=== PATIENT | male | born 1970 | race Caucasian/White ===

== ENCOUNTER → 2016-10-01 | Outpatient (CLI) | payer BC ==
[~2016-10-01] MED LIST: /PANT40TA OR; /WARF5TA OR; ACET65TA OR; ALBU17IN2 IN; ENOX40SY SC; PROT1TAB2 PO; VICO5TAB OR
== END | disposition home or self-care (01) ==
LOC: M SMT 14:58
PROVIDERS: ATTEND Nurse Practitioner Women's Health
DX: Z12.5 Encounter for screening for malignant neoplasm of prostate (principal); R31.29 Other microscopic hematuria

== ENCOUNTER → 2016-10-10 | Outpatient (CLI) | payer BC ==
[~2016-10-10] MED LIST changes: +ISOVUE-370 76% 100ML VIAL (Q9967) As Ordered ONE
--- NOTE | 2016-10-10 14:29 | REP ---
CT abdomen pelvis multiphasic scanning: Scan is performed from the diaphragms to the pubic symphysis on all phases. Scanning is initially performed without IV contrast. This is followed by IV contrast enhanced biphasic scanning, initially during the portal venous phase of enhancement and later during the equilibrium phase of enhancement. There is no bowel contrast of the phase of the study. Comparison is 10/01/2011. The visualized lung faustin are unremarkable. There is hepato steatosis. The liver is otherwise unremarkable. The gallbladder, pancreas and spleen are unremarkable. The adrenals are unremarkable. There are no renal calculi. There is no hydronephrosis. There is a 1.8 cm right renal cyst, similar to the prior study. There are no renal masses. The abdominal aorta is unremarkable. Bowel and mesentery are unremarkable. Pelvis: The bladder is unremarkable. There is no pelvic adenopathy or ascites. The pelvic bowel loops are unremarkable. The appendix is unremarkable. Impression: There are no renal calculi or masses. There is a right renal cyst, unchanged from the prior studies. There is no hydronephrosis. The bladder is unremarkable. There is hepato steatosis. Otherwise, negative CT of the abdomen and pelvis. Signed by Rob Russell MD 10/10/2016 02:20 P
== END | disposition home or self-care (01) ==
LOC: M RAD 12:33
PROVIDERS: ATTEND Nurse Practitioner Women's Health
DX: R31.29 Other microscopic hematuria (principal); N28.1 Cyst of kidney, acquired; K76.0 Fatty (change of) liver, not elsewhere classified
CPT/HCPCS: 74178; Q9967

== ENCOUNTER → 2016-11-11 | Outpatient (CLI) | payer BC ==
[~2016-11-11] MED LIST changes: -ISOVUE-370 76% 100ML VIAL (Q9967) As Ordered ONE
--- NOTE | 2016-11-11 11:07 | REP ---
Scrotal sonography: History: Hematospermia. Left testicular pain. Comparison scrotal sonography is from June 14, 2007 Findings: There is no evidence of intratesticular mass lesion on either side. Right testicular dimensions are 4.6 x 2.6 x 3.2 cm. Left testis measures 4.3 x 2.4 x 3.0 cm. There are bilateral epididymal cysts. The largest on the right measures 0.9 cm in diameter. On the left, the largest measures a 0.4 cm in greatest diameter. There are small bilateral hydroceles. There is a small extra-testicular cystic structure at the upper pole of the left testis consistent with cystic change in the appendix testis. Impression: 1. Small bilateral epididymal cyst. 2. 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 3. Small bilateral hydroceles. Signed by Jonathan Concepcion MD 11/11/2016 03:19 P
== END ==
LOC: M RAD 08:58
PROVIDERS: ATTEND Nurse Practitioner Women's Health
DX: R36.1 Hematospermia (principal); N50.3 Cyst of epididymis; N43.3 Hydrocele, unspecified

== ENCOUNTER 2017-10-20 14:41 | Emergency (ER) | payer BC ==
[2017-10-20] MEDS: NS 1,000 ML IV (17:45)
[2017-10-20 18:09] LABS: BASO # 0.1 10^3/uL (0.0-0.2); BASO % 0.5 % (0.0-1.0); EOS % 0.3 % (0.0-3.0); HEMATOCRIT 50.8 % (42.0-52.0); HEMOGLOBIN 17.5 g/dl (14.0-18.0); IMMATURE GRANULOCYTE % 0.3 % (0-3.0); LYMPH # 2.2 10^3/uL (1.5-4.5); LYMPH % 22.2 % (24.0-44.0); MEAN CORPUSCULAR HEMOGLOBIN 29.8 pg (27.0-33.0); MEAN CORPUSCULAR HGB CONC 34.4 g/dl (32.0-36.5); MEAN CORPUSCULAR VOLUME 86.5 fl (80.0-96.0); MONO # 0.8 10^3/uL (0.0-0.8); MONO % 7.4 % (0.0-5.0); NEUTROPHILS % 69.3 % (36.0-66.0); PLATELET COUNT, AUTOMATED 221 10^3/uL (150-450); RED BLOOD COUNT 5.87 10^6/uL (4.30-6.10); RED CELL DISTRIBUTION WIDTH 12.8 % (11.5-14.5); WHITE BLOOD COUNT 10.1 10^3/uL (4.0-10.0)
[2017-10-20 18:36] LABS: ANION GAP 7 MEQ/L (8-16); BLOOD UREA NITROGEN 20 MG/DL (7-18); CALCIUM LEVEL 9.4 MG/DL (8.5-10.1); CARBON DIOXIDE LEVEL 26 MEQ/L (21-32); CHLORIDE LEVEL 107 MEQ/L (98-107); CPK CREATINE PHOSPHOKINASE 390 U/L (39-308); CREATININE FOR GFR 1.04 MG/DL (0.70-1.30); GLOMERULAR FILTRATION RATE > 60.0 (>60); GLUCOSE, FASTING 95 MG/DL (70-100); POTASSIUM SERUM 4.2 MEQ/L (3.5-5.1); SODIUM LEVEL 140 MEQ/L (136-145); TROPONIN I < 0.02 NG/ML (< 0.10)
[2017-10-20 18:37] LABS: D-DIMER QUANT < 270.0 ng/ml (<500)
[2017-10-20 18:37] LABS: CK-MB VALUE MASS 3.4 NG/ML (0.0-3.6); MB/CK RELATIVE INDEX 0.87 (< OR =4)
== END 2017-10-20 19:54 | disposition home or self-care (01) ==
LOC: M ED 14:41
DX: R51 Headache (principal); R68.2 Dry mouth, unspecified; K31.9 Disease of stomach and duodenum, unspecified; Z86.79 Personal history of other diseases of the circulatory system; Z79.899 Other long term (current) drug therapy; Z86.718 Personal history of other venous thrombosis and embolism; Z87.448 Personal history of other diseases of urinary system
CPT/HCPCS: 71046

== ENCOUNTER → 2018-07-20 | Outpatient (REF) | payer BC | LOC: M SFHCLERA 15:56 | DX: J02.9 Acute pharyngitis, unspecified (principal) ==

== ENCOUNTER 2018-07-24 11:11 | Emergency (ER) | payer BC | END 2018-07-24 12:29 | disposition home or self-care (01) | LOC: M ED 11:11 | DX: J02.9 Acute pharyngitis, unspecified (principal); K21.9 Gastro-esophageal reflux disease without esophagitis; Z87.01 Personal history of pneumonia (recurrent); Z79.899 Other long term (current) drug therapy | CPT/HCPCS: 99283 ==

== ENCOUNTER → 2019-11-17 | Outpatient (CLI) | payer BC ==
[~2019-11-17] MED LIST changes: -/PANT40TA OR; -/WARF5TA OR; +AMOX875T PO; +COUM1TAB17 OR; -ENOX40SY SC; +LOVE1INJ SC; +PROT1TAB2 OR
[2019-11-17 19:46] LABS: FREE T4 1.03 NG/DL (0.76-1.46); THYROID STIMULATING HORMONE 0.756 uIU/ML (0.358-3.740); THYROXINE (T4) 9.9 UG/DL (4.5-12.0)
[2019-11-17 19:55] LABS: TOTAL T3 105.3 NG/DL (60.0-181.0)
== END ==
LOC: M LRY 14:34
PROVIDERS: ATTEND Ophthalmology
DX: H16.223 Keratoconjunctivitis sicca, not specified as Sjogren's, bilateral (principal)

== ENCOUNTER → 2022-06-08 | Outpatient (CLI) | payer BC ==
[~2022-06-08] MED LIST changes: +EZET10TA21 PO
== END ==
LOC: M LABSMTC 10:23
PROVIDERS: ATTEND Anesthesiology
DX: Z01.818 Encounter for other preprocedural examination (principal); Z11.52 Encounter for screening for COVID-19

== ENCOUNTER 2022-06-11 07:07 | Day surgery (SDC) | payer BC ==
[~2022-06-11] VITALS: Ht 177.8 cm; Wt 99.3 kg
[~2022-06-11 07:07] MED LIST changes: +BSS IRRIG/VANCO(10MG)/TOBRA(5MG)/EPINEPH(1:1000-0.5CC)500ML BAG-ORONLY IR ONE; +CEFUROXIME 1MG/0.1ML INTRACAMERAL INJ As Ordered ONE; +LIDOCAINE 1% SDV 5ML VIAL As Ordered ONE; +LIDOCAINE 3.5 % 1ML OPHTH TOPICAL GEL OU ONE; +OFLOXACIN 0.3 % (OCUFLOX) OPTH SOL 5ML OD ONE; +PHENYLEPHRINE HCL 10 % OPHTH. SOL 5ML OD PRN
[2022-06-11] MEDS: TROPICAMIDE 1% OPHTH SOLN 2ML OD SCH (08:01)
[2022-06-11] MEDS: CYCLOPENTOLATE 1% OPHTH SOLN 2 ML BTL OD SCH (08:01)
[2022-06-11] MEDS: PHENYLEPHRINE 2.5% OPHTH SOL 2ML OD SCH (08:01)
[2022-06-11] MEDS ORDERED: MIDAZOLAM INJ 2MG/2ML VIAL (J2250 PER 1MG) As Ordered ONE (08:45)
[2022-06-11] MEDS ORDERED: fentaNYL 100 MCG/2 ML INJECTION As Ordered ONE (08:45)
[2022-06-11 09:35] VITALS: BP 132/85
== END 2022-06-11 09:35 | disposition home or self-care (01) ==
LOC: M SDC 07:07
PROVIDERS: ATTEND Ophthalmology
DX: H25.11 Age-related nuclear cataract, right eye (principal)
CPT/HCPCS: 66984; 92015; J0697; J2250; J3010

== ENCOUNTER 2023-09-14 13:33 | Emergency (ER) | payer BC, SELFPAY ==
[~2023-09-14] VITALS: Ht 180.3 cm; Wt 100.4 kg
[2023-09-14 13:33] VITALS: BP 140/87; TEMP 98.1; O2SAT 96
[~2023-09-14 13:33] MED LIST changes: -BSS IRRIG/VANCO(10MG)/TOBRA(5MG)/EPINEPH(1:1000-0.5CC)500ML BAG-ORONLY IR ONE; -CEFUROXIME 1MG/0.1ML INTRACAMERAL INJ As Ordered ONE; -LIDOCAINE 1% SDV 5ML VIAL As Ordered ONE; -LIDOCAINE 3.5 % 1ML OPHTH TOPICAL GEL OU ONE; -OFLOXACIN 0.3 % (OCUFLOX) OPTH SOL 5ML OD ONE; -PHENYLEPHRINE HCL 10 % OPHTH. SOL 5ML OD PRN
[2023-09-14] MEDS ORDERED: METO1TAB7 (14:04)
[2023-09-14] MEDS ORDERED: ROSU5TAB5 (14:04)
[2023-09-14] MEDS ORDERED: NAPR-885 PO (14:04)
[2023-09-14] MEDS ORDERED: DOXY100T27 (14:04)
== END 2023-09-14 17:47 | disposition left against medical advice (07) ==
LOC: M ED 13:33
DX: Z53.21 Procedure and treatment not carried out due to patient leaving prior to being seen by health care provider (principal)